=== PATIENT | male | born 1945 | race Caucasian/White ===

== ENCOUNTER → 2022-07-18 | Outpatient (CLI) | payer MEDICARE, BC, OTHER ==
[~2022-07-18] MED LIST: AMLO1TAB24 PO; BICA50TA9 PO; EZET10TA21 PO; GLIP5TAB8 PO; JANU100T PO; LISI40TA4 PO; OMEP-173 PO; SIMV10TA21 PO
== END ==
LOC: M ONCR 12:54
PROVIDERS: ATTEND General Practice
DX: C61 Malignant neoplasm of prostate (principal)

== ENCOUNTER → 2022-08-01 | Outpatient (CLI) | payer MEDICARE, BC, OTHER ==
[~2022-08-01] VITALS: Ht 180.3 cm; Wt 115.0 kg
[~2022-08-01] MED LIST changes: +CIPR750T2 PO; +LIDOCAINE 2% MDV 20ML VIAL XX ONE; +LIDOCAINE VISCOUS 2% SOLN 15ML UDC XX ONE; +LORA1TAB4 PO
[2022-08-01 09:17] VITALS: BP 158/86
[2022-08-01 09:47] VITALS: BP 148/88
== END ==
LOC: M ONCR 08:37
PROVIDERS: ATTEND General Practice
DX: C61 Malignant neoplasm of prostate (principal)
CPT/HCPCS: 55874; 55876; A4648; C1889